=== PATIENT | female | born 2000 | race Caucasian/White ===

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

== ENCOUNTER 2018-12-08 01:22 | Emergency (ER) | payer MEDICAID, OTHER ==
[2018-12-08] MEDS ORDERED: NORMAL SALINE 1000 ML 1,000 ML IV ONE (02:19)
[2018-12-08] MEDS ORDERED: ONDANSETRON HCL INJ/PF 4 MG/2 ML SDV IV ONE (02:19)
[2018-12-08 02:26] LABS: HEMATOCRIT 39.5 % (36.0-47.0); HEMOGLOBIN 12.9 g/dL (12.0-15.5); MEAN CORPUSCULAR HGB CONC 32.5 g/dL (32.0-36.0); MEAN CORPUSCULAR VOLUME 83 fl (80-97); PLATELET COUNT 352 10^3/uL (150-450); RED BLOOD COUNT 4.75 10^6/uL (3.72-5.28); RED CELL DISTRIBUTION WIDTH 15.3 % (11.5-14.0); WHITE BLOOD COUNT 19.4 10^3/uL (4.0-10.5)
[2018-12-08 02:40] LABS: ALBUMIN 4.8 g/dL (3.5-5.0); ALKALINE PHOSPHATASE 76 U/L (38-126); ANION GAP 14 (5-19); ASPARTATE AMINO TRANSFERASE 59 U/L (14-36); BILIRUBIN,DIRECT 0.1 mg/dL (0.0-0.4); BILIRUBIN,TOTAL 0.7 mg/dL (0.2-1.3); BLOOD UREA NITROGEN 14 mg/dL (7-20); CALCIUM 10.2 mg/dL (8.4-10.2); CARBON DIOXIDE 28 mmol/L (22-30); CHLORIDE 99 mmol/L (98-107); GLUCOSE 209 mg/dL (75-110); POTASSIUM 3.1 mmol/L (3.6-5.0); TOTAL PROTEIN 8.3 g/dL (6.3-8.2)
[2018-12-08] MEDS ORDERED: DICYCLOMINE HCL INJ 20 MG/2 ML AMPULE IM ONE (02:49)
[2018-12-08 02:50] LABS: ABSOLUTE LYMPHOCYTES# (MANUAL) 1.6 10^3/uL (0.5-4.7); ANISOCYTOSIS SLIGHT; BAND NEUTROPHILS % (MANUAL) 7 % (3-5); BASOPHILS % (MANUAL) 0 % (0-2); EOSINOPHILS % (MANUAL) 0 % (0-6); LYMPHOCYTES % (MANUAL) 8 % (13-45); MONOCYTES % (MANUAL) 5 % (3-13); SEGMENTED NEUTROPHILS % (MAN) 80 % (42-78); TOTAL CELLS COUNTED 100
[2018-12-08 02:51] LABS: PLATELET COMMENT ADEQUATE; STOMATOCYTES 1+
--- NOTE | 2018-12-08 04:26 | ER Document Report ---
ED General - General Chief Complaint: Vomiting Stated Complaint: VOMITING Time Seen by Provider: 12/08/18 02:11 Primary Care Provider: OZZY DASILVA NP [Primary Care Provider] - Follow up as needed TRAVEL OUTSIDE OF THE [place] IN LAST 30 DAYS: No - HPI Notes: This is a 18-year-old female who presented with a complaint of nausea, vomiting, diarrhea and abdominal pain for the past few hours. Patient states symptoms around 1030. Patient denies any fever. She denies any recent antibiotic use. She denies any recent foreign travel. She describes her symptoms as moderate. She states she has not been able to keep anything down. There are no obvious aggravating or relieving factors. No sick contacts at home. - Related Data Allergies/Adverse Reactions: No Known Allergies Allergy (Verified 07/14/12 18:22) Past Medical History - Social History Smoking Status: Unknown if Ever Smoked Family History: Hypertension Patient has suicidal ideation: No Patient has homicidal ideation: No - Past Medical History Cardiac Medical History: Reports: Hx Hypertension - due to renal problems Pulmonary Medical History: Reports: Hx Asthma Renal/ Medical History: Denies: Hx Ovarian Cysts - Immunizations Immunizations up to date: Yes Hx Diphtheria, Pertussis, Tetanus Vaccination: Yes Review of Systems - Review of Systems Constitutional: denies: Fever Respiratory: denies: Cough Gastrointestinal: Abdominal pain, Diarrhea, Nausea Genitourinary: denies: Burning -: Yes All other systems reviewed and negative Physical Exam - Vital signs Vitals: Pulse Resp BP Pulse Ox 143 H 26 H 149/111 H 100 12/08/18 01:45 12/08/18 01:45 12/08/18 01:45 12/08/18 01:45 Interpretation: Tachycardic - General General appearance: Appears well, Alert Notes: Ill-appearing - Respiratory Respiratory status: No respiratory distress Chest status: Nontender Breath sounds: Normal Chest palpation: Normal - Cardiovascular Rhythm: Regular Heart sounds: Normal auscultation Murmur: No - Abdominal Inspection: Normal Distension: No distension Bowel sounds: Normal Tenderness: Tender - There is slight left lower quadrant tenderness. There is no guarding or rebound.. No: Becker's sign, Guarding, Rebound Organomegaly: No organomegaly - Back Back: Normal, Nontender - Neurological Neuro grossly intact: Yes Cognition: Normal Orientation: AAOx4 Romina Coma Scale Eye Opening: Spontaneous [place] Coma Scale Verbal: Oriented [place] Coma Scale Motor: Obeys Commands Romina Coma Scale Total: 15 Speech: Normal Motor strength normal: LUE, RUE, LLE, RLE Sensory: Normal - Psychological Associated symptoms: Normal affect, Normal mood - Skin Skin Temperature: Warm Skin Moisture: Dry Skin Color: Normal Course - Re-evaluation Re-evalutation: 12/08/18 03:14 Differential diagnosis includes gastroenteritis versus colitis versus nonspecific abdominal pain. I doubt appendicitis or acute cholecystitis. Will check basic labs. Given tachycardia, tenderness, I will get CT scan. 4:20 Patient reevaluated. She feels much better. Tachycardia resolved with IV fluids. Awaiting CT scan. 12/08/18 05:52 Patient reevaluated. She feels much better. CT scan is consistent with gastroenteritis. She is stable for discharge. - Vital Signs Vital signs: Temp Pulse Resp BP Pulse Ox 143 H 20 123/73 97 12/08/18 01:45 12/08/18 05:03 12/08/18 05:03 12/08/18 05:03 - Laboratory Result Diagrams: 12/08/18 02:15 12/08/18 02:15 Laboratory results interpreted by me: 12/08/18 12/08/18 12/08/18 02:15 02:15 04:17 WBC 19.4 H RDW 15.3 H Seg Neuts % (Manual) 80 H Band Neutrophils % 7 H Lymphocytes % (Manual) 8 L Abs Neuts (Manual) 16.9 H Potassium 3.1 L Glucose 209 H AST 59 H Total Protein 8.3 H Urine Protein 30 H Urine Ketones TRACE H Discharge - Discharge Clinical Impression: Acute gastroenteritis, Dehydration Abdominal pain Qualifiers: Abdominal location: unspecified location Qualified Code(s): R10.9 - Unspecified abdominal pain Condition: Stable Disposition: HOME, SELF-CARE Instructions: Abdominal Pain ([facility]), Gastroenteritis (adult) ([facility]), Vomiting ([facility]) Prescriptions: Dicyclomine HCl [Bentyl 20 mg Tablet] 20 mg PO QID PRN #20 tablet PRN Reason: Abdominal Cramping Ondansetron [Zofran Odt 4 mg Tablet] 1 - 2 tab PO Q4H PRN #15 tab.rapdis PRN Reason: For Nausea/Vomiting Referrals: OZZY DASILVA NP [Primary Care Provider] - Follow up in 3-5 days
[2018-12-08] MEDS ORDERED: MORPHINE SULFATE 10 MG/ML INJ IV ONE (04:29)
[2018-12-08 04:45] LABS: APPEARANCE,URINE CLEAR; BILIRUBIN,URINE NEGATIVE (NEGATIVE); COLOR,URINE YELLOW; GLUCOSE, URINE NEGATIVE (NEGATIVE); KETONES,URINE TRACE mg/dL (NEGATIVE); LEUKOCYTE ESTERASE,URINE NEGATIVE (NEGATIVE); NITRITE,URINE NEGATIVE (NEGATIVE); PROTEIN,URINE 30 mg/dL (NEGATIVE); URINE SPECIFIC GRAVITY 1.019; UROBILINOGEN,URINE NEGATIVE mg/dL (<2.0)
--- NOTE | 2018-12-08 05:48 | RADIOLOGY REPORT (SQ) ---
EXAM DESCRIPTION: CT ABDOMEN PELVIS WITH IV CONTRAST COMPLETED DATE/TME: 12/08/2018 02:18 CLINICAL HISTORY: 18 years, Female, diffuse abd pain, diarrhea(after eating chicken) ? colitis. HCG NEG COMPARISON: None. TECHNIQUE: [id number] Images stored on PACS. All CT scanners at this facility use dose modulation, iterative reconstruction, and/or weight based dosing when appropriate to reduce radiation dose to as low as reasonably achievable (ALARA). [facility]: Dose Right [facility]: CareDose [facility]: Dose Right [facility]: Teradose 4D [facility]: [employer] LIMITATIONS: None. FINDINGS: Limited evaluation lung bases is unremarkable. Osseous structures are grossly intact. Fatty infiltrative change to the liver. Spleen is at the upper limits of normal in size. The adrenal glands, pancreas, kidneys are unremarkable. Gallbladder is present. No gross evidence for bowel obstruction. Liquefied stool throughout colon. Normal appendix. No free air or free fluid IMPRESSION: Fatty infiltrative change to the liver. Liquefied stool throughout colon. TECHNICAL DOCUMENTATION: Quality ID # [id number]: Final reports with documentation of one or more dose reduction techniques (e.g., Automated exposure control, adjustment of the mA and/or kV according to patient size, use of iterative reconstruction technique) copyright 2010 [employer]- All Rights Reserved
[2018-12-08 06:14] VITALS: BP 108/66
--- NOTE | 2018-12-08 13:39 | EKG REPORT ---
SEVERITY:- BORDERLINE ECG - SINUS TACHYCARDIA PROBABLE LEFT ATRIAL ABNORMALITY BORDERLINE T WAVE ABNORMALITIES : Confirmed by: Katrin Mohr MD 08-Dec-2018 13:39:02
== END 2018-12-08 06:15 | disposition home or self-care (01) ==
LOC: ER 01:22
DX: K52.89 Other specified noninfective gastroenteritis and colitis (principal); E86.0 Dehydration; R10.9 Unspecified abdominal pain; R11.2 Nausea with vomiting, unspecified; R19.7 Diarrhea, unspecified; I10 Essential (primary) hypertension; J45.909 Unspecified asthma, uncomplicated
CPT/HCPCS: 93005; 99284; 96372; 96361; 96374; 96375; 36415; 83690; 85025; 81025; 80053; 81001; 74177; 93010; J0500; J2270; J2405; J7030